=== PATIENT | female | born 1985 | race Caucasian/White ===

== ENCOUNTER 2019-09-08 15:23 | Inpatient (IN) | payer MEDICAID, OTHER, SELFPAY ==
[~2019-09-08] VITALS: Ht 154.9 cm; Wt 106.1 kg
--- NOTE | 2019-09-08 16:08 | NUR ---
pt to ed per eye dr/pcp. had eye check up, then was told to go to pcp, then had appt scheduled w/ agricultural specialist. then was told to go to ED for MRI immediately but was not told why. per valentin, pt has increased intraocular pressure. plan for mri w/ contrast. valentin in room for eval. as
--- NOTE | 2019-09-08 16:24 | NUR ---
PT TO STAT MRI.
[2019-09-08] MEDS ORDERED: LORazepam 2 MG/ML, 1ML ONE (16:32)
[2019-09-08 16:42] LABS: ALBUMIN 3.7 g/dL (3.4-5.0); ANION GAP 8 mmol/L (5-15); CALCIUM 9.1 mg/dL (8.5-10.1); CHLORIDE 103 mmol/L (98-107)
[2019-09-08 16:45] LABS: ALANINE AMINOTRANSFERASE 27 U/L (12-78); ALKALINE PHOSPHATASE 55 U/L (45-117); BILIRUBIN,TOTAL 0.4 mg/dL (0.2-1.0); CREATININE 0.94 mg/dL (0.55-1.02)
[2019-09-08 16:47] LABS: BASOPHILS # (AUTO) 0.03 x10^3/uL (0-0.1); BASOPHILS % (AUTO) 0 % (0-1); EOSINOPHILS # (AUTO) 0.26 x10^3/uL (0-0.4); EOSINOPHILS % (AUTO) 2 % (1-7); LYMPHOCYTES # (AUTO) 2.79 x10^3/uL (1-3.4); LYMPHOCYTES % (AUTO) 24 % (22-44); MD NO; MEAN CORPUSCULAR HEMOGLOBIN 25.7 pg (27.0-34.8); MEAN CORPUSCULAR HGB CONC 32.7 g/dL (32.4-35.8); MEAN CORPUSCULAR VOLUME 78.6 fL (80-100); MONOCYTES # (AUTO) 0.52 x10^3/uL (0.2-0.8); MONOCYTES % (AUTO) 4 % (2-9); NEUTROPHILS # (AUTO) 8.29 x10^3/uL (1.8-6.8); NEUTROPHILS % (AUTO) 70 % (42-75); PLATELET COUNT 462 x10^3/uL (130-400); RED BLOOD COUNT 5.06 x10^6/uL (3.82-5.3); RED CELL DISTRIBUTION WIDTH 14.8 % (9.6-15.2)
--- NOTE | 2019-09-08 16:49 | NUR ---
TASK RN: THIS RN TO MRI TO MEDICATE PATIENT. PT RESTING ON MRI TABLE COMFORTABLY. PT JUST ANXIOUS ABOUT THE RESULTS.
--- NOTE | 2019-09-08 16:57 | NUR ---
TASK RN: REPORT TO ASHIA SOTELO. PT STILL IN MRI
[2019-09-08] MEDS ORDERED: SODIUM CHLORIDE FLUSH 10ML SYR IVF ONE (17:00)
[2019-09-08] MEDS: LORazepam 2 MG/ML, 1ML IVPush ONE ×2 (17:01→17:02)
[2019-09-08 17:12] LABS: C-REACTIVE PROTEIN, QUANT 0.94 mg/dL (0.02-0.49)
[2019-09-08 17:18] LABS: INTERNATIONAL NORMALIZED RATIO 0.89 (0.93-1.1); PROTHROMBIN TIME 9.4 Seconds (9.6-11.5)
--- NOTE | 2019-09-08 18:08 | NUR ---
pt back from mri, piv retaped was leaking. vss. as
[2019-09-08 18:32] LABS: HCT (SEDRATE) 39.8 % (34.6-47.8)
--- NOTE | 2019-09-08 19:05 | NUR ---
pt up for recheck resting in stretcher on phone nad. as
--- NOTE | 2019-09-08 19:11 | NUR ---
labs added on to pt. as
[2019-09-08] MEDS ORDERED: SODIUM CHLORIDE FLUSH 10ML SYR IVF PRN (19:30)
--- NOTE | 2019-09-08 19:34 | NUR ---
pt tbadm. to have spinal tap in morning. valentin in room to explain to pt. vss. lab in room. re explained why pt is being admitted to pt. as
[2019-09-08 20:05] VITALS: BP 143/94
[2019-09-08] MEDS ORDERED: ACETAMINOPHEN 325 MG TABLET PO PRN (21:00)
[2019-09-08] MEDS: metFORMIN 500 MG TABLET PO SCH (21:41)
[2019-09-08] MEDS ORDERED: CITA20TA9 PO (23:15)
[2019-09-08] MEDS ORDERED: METF-649 PO (23:15)
[2019-09-08] MEDS ORDERED: OMEP40CA42 PO (23:16)
[2019-09-09 00:51] VITALS: BP 146/76
[2019-09-09 05:36] LABS: ANION GAP 6 mmol/L (5-15); BASOPHILS # (AUTO) 0.03 x10^3/uL (0-0.1); BASOPHILS % (AUTO) 0 % (0-1); CALCIUM 8.8 mg/dL (8.5-10.1); CHLORIDE 106 mmol/L (98-107); EOSINOPHILS # (AUTO) 0.19 x10^3/uL (0-0.4); EOSINOPHILS % (AUTO) 2 % (1-7); LYMPHOCYTES # (AUTO) 2.74 x10^3/uL (1-3.4); LYMPHOCYTES % (AUTO) 34 % (22-44); MD NO; MEAN CORPUSCULAR HEMOGLOBIN 25.5 pg (27.0-34.8); MEAN CORPUSCULAR HGB CONC 32.3 g/dL (32.4-35.8); MEAN CORPUSCULAR VOLUME 78.8 fL (80-100); MEAN PLATELET VOLUME 7.9 fL (7.4-10.4); MONOCYTES # (AUTO) 0.46 x10^3/uL (0.2-0.8); MONOCYTES % (AUTO) 6 % (2-9); NEUTROPHILS # (AUTO) 4.68 x10^3/uL (1.8-6.8); NEUTROPHILS % (AUTO) 58 % (42-75); PLATELET COUNT 429 x10^3/uL (130-400); RED BLOOD COUNT 5.06 x10^6/uL (3.82-5.3); RED CELL DISTRIBUTION WIDTH 15.9 % (9.6-15.2)
[2019-09-09 05:40] LABS: CREATININE 0.84 mg/dL (0.55-1.02)
[2019-09-09] MEDS ORDERED: OMEPRAZOLE 20 MG CAPSULE.DR PO SCH (06:00)
[2019-09-09 07:33] VITALS: BP 113/72
[2019-09-09] MEDS: metFORMIN 500 MG TABLET PO SCH ×2 (08:00→12:00)
[2019-09-09] MEDS ORDERED: CITALOPRAM 20 MG TABLET PO SCH (09:00)
[2019-09-09 12:16] VITALS: BP 110/76
[2019-09-09] MEDS ORDERED: LIDOCAINE-MPF 1%, 5ML ONE (12:28)
[2019-09-09 12:53] LABS: ANA SCREEN NEGATIVE (Negative)
[2019-09-09 15:43] LABS: GLUCOSE, CSF 49 mg/dL (40-80); TOTAL PROTEIN,CSF 18 mg/dL (15-45)
[2019-09-09] MEDS ORDERED: ENOXAPARIN 40 MG/0.4 ML SQ SCH (21:00)
== END 2019-09-09 17:05 | disposition home or self-care (01) | DRG 58 ==
LOC: ED 19:30 → EDIP 19:36 → 3N 20:03 → DCLOUNGE 09-09 16:58
PROVIDERS: ADMIT Family Medicine; ATTEND Family Medicine
PROC: 009U3ZX Drainage of Spinal Canal, Percutaneous Approach, Diagnostic (ICD-10-PCS; principal; 2019-09-09)
DX: H47.10 Unspecified papilledema (principal); D72.829 Elevated white blood cell count, unspecified; E11.9 Type 2 diabetes mellitus without complications; F32.9 Major depressive disorder, single episode, unspecified; E28.2 Polycystic ovarian syndrome; F41.9 Anxiety disorder, unspecified; G43.909 Migraine, unspecified, not intractable, without status migrainosus; Z88.0 Allergy status to penicillin; Z90.49 Acquired absence of other specified parts of digestive tract; Z90.710 Acquired absence of both cervix and uterus; Z88.1 Allergy status to other antibiotic agents
CPT/HCPCS: 36415; 62328; 70543; 70546; 70553; 80048; 80053; 82607; 82945; 83520; 84157; 84703; 85025; 85610; 85651; 85730; 86038; 86140; 86147; 86148; 86592; 87070; 87205; 89051; G0378; J2060